=== PATIENT | male | born 1985 | race Caucasian/White ===

== ENCOUNTER 2017-05-30 21:13 | Emergency (ER) | payer SELFPAY | END 2017-05-30 21:50 | disposition left against medical advice (07) | LOC: D.ER 21:13 | DX: S61.411A Laceration without foreign body of right hand, initial encounter (principal); W26.9XXA Contact with unspecified sharp object(s), initial encounter; Y93.9 Activity, unspecified; Y92.010 Kitchen of single-family (private) house as the place of occurrence of the external cause ==

== ENCOUNTER 2018-04-12 16:28 | Emergency (ER) | payer MEDICAID ==
[~2018-04-12] VITALS: Ht 193 cm; Wt 95.5 kg
[2018-04-12 16:31] VITALS: Ht 193 cm; Wt 95.5 kg
[2018-04-12] MEDS ORDERED: BACTRIM DS1 TAB PO (19:20)
[2018-04-12] MEDS ORDERED: ULTRAM50 MG PO (19:20)
[2018-04-12 19:28] VITALS: BP 115/72
== END 2018-04-12 19:29 | disposition home or self-care (01) ==
LOC: D.ER 16:28
DX: L02.31 Cutaneous abscess of buttock (principal); F17.200 Nicotine dependence, unspecified, uncomplicated